=== PATIENT | male | born 1950 | race Caucasian/White ===

== ENCOUNTER 2016-10-20 21:10 | Emergency (ER) | payer MEDICARE, MEDICAID ==
[~2016-10-20] VITALS: Ht 195.6 cm; Wt 96.4 kg
[~2016-10-20 21:10] MED LIST: ASAEC PO; CLIN-78 PO; FLUO40CA12 PO; FURO40TA PO; METFORMIN; VIC5 PO
[2016-10-20 21:54] VITALS: BP 133/87; PULSE 52; RESP 16; O2SAT 98
--- NOTE | 2016-10-20 22:22 | ED.REPORT ---
HPI-Extremity Problem Lower Date of Service Oct 20, 2016 ED Provider: Salo Dixon MD A 66 year old male with a history of diabetes mellitus with venous stasis ulcers presents to the ED via EMS complaining of worsening swelling to the bilateral lower extremities that first began 1 week ago. Patient is currently followed by wound care center and has been taking the full 8 day course Keflex as directed. Associated symptoms include redness, warmth and pain the affected areas. Patient is currently expressing concern because the swelling and redness in his legs has not improved. He denies chills, fever, diaphoresis, or vomiting. Patient denies any cardiovascular history, cancer or any other medical conditions. Nursing Notes Stated Complaint: LEG REDNESS,DIABETIC Chief Complaint: General Complaint Nursing Notes Reviewed: Yes Allergies: Coded Allergies: Adhesives (Verified Allergy, Intermediate, Rash, 04/26/15) Penicillins (Verified Allergy, Intermediate, BLEEDING, RASH, 04/26/15) Scheduled Aspirin-Expunged Drug, Do Not Renew! (Aspirin EC-Expunged Drug, Do Not Renew!) 325 Mg Tablet 325 MG PO AM Clindamycin (Clindamycin) 300 Mg Capsule 600 MG PO TID FLUoxetine-Expunged Drug, Do not Renew! (Prozac-Expunged Drug, Do not Renew!) 40 Mg Capsule 40 MG PO HS Furosemide-Expunged Drug, Do Not Renew! (Lasix-Expunged Drug, Do Not Renew!) 40 Mg Tablet 40 MG PO HS Hydrocod/APAP-Expunged, Do Not Renew! (Vicodin-Expunged Drug, Do Not Renew) 1 Tab Tab 1 TAB PO PRN Miscellaneous Medications ([Metformin]) PT UNABLE TO RECALL DOSE General Time Seen by MD: 22:21 Chief Complaint Leg injury right, Leg injury left Hx Obtained From: Patient Arrived By: Ambulance Onset Occurred: 1 week ago Symptom Duration: Since onset Location: : Leg left: Leg right Quality: Painful Severity: Current: Mild Severity: Maximum: Mild Associated with: Denies: Fever, Vomiting Pertinent Negative: Pt denies other symptoms Recent Healthcare: No recent doctor visit, No recent hospitalization Past Medical History Past Medical History Diabetes, lower extremity edema Venous stasis ulcers, legs bilaterally Reports: Depression Past Surgical History None reported. Smoking History Unknown if Ever Smoker Social History Alcohol Use: Denies alcohol use Drug Use: Denies drug use Other Social History: Local resident Ambulatory Status Independent Review of Systems + Redness + Warmth Musculoskeletal: Reports: Extremity pain, Extremity swelling Complete sys rev & neg: except as marked. Physical Exam Initial Vital Signs Vital Signs (First) Date Time Temp Pulse Resp B/P Pulse Ox O2 Delivery O2 Flow Rate FiO2 10/20/16 21:54 36.7 52 16 133/87 98 Room Air Initial VS: Reviewed Head / Eyes: Atraumatic, Normocephalic, PERRL Neck: Supple, Non-tender, Full range of motion Upper Extremities: Vascular intact, Neuro intact, No swelling, No tenderness Neurologic: Alert, Oriented, Nonfocal Psychiatric: Mood/affect normal, Behavior normal, Normal thought content Lower Extremity / Pelvis / MS: Atraumatic, Neurologic intact, Vascular intact Lower Ext Brief Normals: Knee R exam normal, Knee L exam normal Right Leg / Calf: Positive: Swelling present..., Warmth present (Mild) Left Leg / Calf: Positive: Erythema present, Swelling present..., Warmth present (mild ) No pain above the proximal 2/3 of the leg Ankle / Foot: Atraumatic, Neurologic intact, Vascular intact General/Constitutional: Awake, Alert, No acute distress Respiratory / Chest: Atraumatic, Breath sounds NL, Breath sounds = bilat, No respiratory distress Cardiovascular: Heart rate NL, Regular rhythm, Heart sounds NL Skin: Atraumatic, Color NL, Warm, Dry Color / Condition: Positive: Lesion present... (Satellite lesions present diffusely in LE) Re-Eval/Medical Decision Re-Evaluation/Progress : Time of Eval: 22:32 Re-Evaluation/Progress Note: Patient is rechecked. He is informed of his results and diagnosis. All questions are addressed at this time. He understands and agrees with the intended treatment plan. Counseled Regarding: Diagnosis, Need for follow-up, When/why to return to ED Discharge & Departure Impression: Primary Impression: Cellulitis Site of cellulitis: extremity Site of cellulitis of extremity: lower extremity Laterality: unspecified laterality Qualified Code: L03.119 - Cellulitis of unspecified part of limb Disposition: Home Discharge Condition All VS Reviewed: Yes Condition: Improved Patient Instructions: Cellulitis (ED) Additional Instructions: Thank you for trusting us with you care this evening. Your emergency department examination is reassuring that there is no emergent cause for concern at this time and I recommend that you keep ypur appointment with Wound Care tomorrow. I believe your symptoms are due to cellulitis, but I am not sure that we should add an additional antibiotic at this point. Please continue to take Keflex as directed. I think decisions about changing care should be made by the wound care center. Please return to the emergency department for any new or worsening symptoms including fever, chills, nausea, vomiting, or worsening pain. Referrals: Bren Mendez MD (PCP) Scribe Attestation Portions of this note were transcribed by Yi Rivas. I, Dr. Dixon personally performed the history, physical exam and medical decision-making; I reviewed and confirmed the accuracy of the information in the transcribed note. copies to: Bren Mendez MD, Kirk H MD Oct 20, 2016 22:22 YI RIVAS Oct 20, 2016 22:31
[2016-10-20 22:49] VITALS: BP 142/84; PULSE 60; RESP 16; O2SAT 98
== END 2016-10-20 22:53 | disposition home or self-care (01) ==
LOC: EDUNIT# 21:10 → EDBD 21:10 → SED 21:10
DX: L03.115 Cellulitis of right lower limb (principal); L03.116 Cellulitis of left lower limb; E11.9 Type 2 diabetes mellitus without complications; F32.9 Major depressive disorder, single episode, unspecified; Z88.0 Allergy status to penicillin; Z91.048 Other nonmedicinal substance allergy status